=== PATIENT | female | born 1970 | race Caucasian/White ===

== ENCOUNTER 2018-09-28 10:11 | Day surgery (SDC) | payer OTHER ==
[2018-09-28 10:51] VITALS: BMI 36.0
[2018-09-28 12:52] VITALS: BP 129/52; PULSE 84; TEMP 99.4
--- NOTE | 2018-09-29 18:11 | PATH ---
Surgical Pathology Report Patient Name: BRANDY BERMAN [facility]. Rec. #: [id number] /Age/Gender: 1970 (Age: 48) / F Account: [id number] Location: U-ENDOSCOPY Taken: 09/28/2018 Received: 09/28/2018 Reported: 09/29/2018 Physicians: Jesse Givens D.O. Specimen(s) Received A: 2ND PORTION AND BULB OF DUODENUM B: ANTRUM AND BODY Clinical History Dyspepsia Postoperative diagnosis: Gastritis and duodenitis Final Diagnosis A. DUODENUM, SECOND PORTION AND BULB, BIOPSY: DUODENAL MUCOSA WITH MILD CHRONIC DUODENITIS AND PRESERVED VILLOUS ARCHITECTURE. B. STOMACH, ANTRUM AND BODY, BIOPSY: GASTRIC ANTRAL AND BODY MUCOSA WITH MILD GASTRITIS. IMMUNOHISTOCHEMICAL STAIN FOR H. PYLORI IS NEGATIVE. Electronically Signed Meagan Dodd M.D. Gross Description A. Received in formalin, labeled "second portion and bulb of duodenum biopsy" are 6 bell, irregular portions of soft tissue ranging from 0.1-0.3 cm. in greatest dimension. The specimens are submitted in toto in one cassette. B. Received in formalin, labeled "antrum and body" are 4 bell, irregular portions of soft tissue ranging from 0.3-0.5 cm. in greatest dimension. The specimens are submitted in toto in one cassette. 09/28/201809/28/2018
== END 2018-09-28 12:40 | disposition home or self-care (01) ==
LOC: JASU-ENDO 10:11
PROVIDERS: ATTEND Internal Medicine Gastroenterology
PROC: 0DB68ZX Excision of Stomach, Via Natural or Artificial Opening Endoscopic, Diagnostic (ICD-10-PCS; 2018-09-28)
PROC: 0DB98ZX Excision of Duodenum, Via Natural or Artificial Opening Endoscopic, Diagnostic (ICD-10-PCS; principal; 2018-09-28 10:15)
DX: K29.80 Duodenitis without bleeding (principal); K29.70 Gastritis, unspecified, without bleeding
CPT/HCPCS: 84703; 88305-TC; 88342-TC

== ENCOUNTER 2018-10-12 09:22 | Day surgery (SDC) | payer OTHER ==
[2018-10-11 16:27] VITALS: BMI 40.7
[2018-10-12 11:27] VITALS: TEMP 97.8
[2018-10-12 12:58] VITALS: BP 144/64; PULSE 87
--- NOTE | 2018-10-13 18:08 | PATH ---
Surgical Pathology Report Patient Name: BRANDY BERMAN [facility]. Rec. #: [id number] /Age/Gender: 1970 (Age: 48) / F Account: [id number] Location: [facility]-ENDOSCOPY Taken: 10/12/2018 Received: 10/12/2018 Reported: 10/13/2018 Physicians: Jesse Givens D.O. Specimen(s) Received PROXIMAL TRANSVERSE COLON POLYP Clinical History Colon screening Postoperative diagnosis: Polyp Final Diagnosis PROXIMAL TRANSVERSE COLON POLYP, BIOPSY: TUBULAR ADENOMA. Electronically Signed Meagan Dodd M.D. Gross Description Received in formalin, labeled "biopsy proximal transverse colon polyp" are 2 bell, irregular portions of soft tissue averaging 0.4 cm. in greatest dimension. The specimens are submitted in toto in one cassette. /10/12/2018 saudi/10/12/2018
== END 2018-10-12 12:20 | disposition home or self-care (01) ==
LOC: JASU-ENDO 09:22
PROVIDERS: ATTEND Internal Medicine Gastroenterology
PROC: 0DBL8ZX Excision of Transverse Colon, Via Natural or Artificial Opening Endoscopic, Diagnostic (ICD-10-PCS; principal; 2018-10-12 10:15)
DX: Z12.11 Encounter for screening for malignant neoplasm of colon (principal); D12.3 Benign neoplasm of transverse colon; K64.8 Other hemorrhoids
CPT/HCPCS: 84703; 88305-TC